=== PATIENT | female | born 1945 | race Caucasian/White ===

== ENCOUNTER 2018-10-21 08:45 | Day surgery (SDC) | payer MEDICARE ==
[2018-10-21] MEDS ORDERED: fentaNYL* 50 MCG/ML 2 ML VIAL (100 MCG VIAL) ONE (09:42)
[2018-10-21] MEDS ORDERED: Midazolam* 1 MG/ML 2 ML VIAL (2 MG) ONE (09:42)
[2018-10-21 10:57] VITALS: BP 133/60
[2018-10-21] MEDS ORDERED: Tropicamide 1% OPTH.SOL* BTL ONE (12:19)
[2018-10-21] MEDS ORDERED: Tetracaine 0.5% OPTH.SOL 4 ML* 1 DROP BTL ONE (12:19)
[2018-10-21] MEDS ORDERED: Ketorolac 0.5% OPHTH (NF) 0.5 % 5 ML BTL ONE (12:19)
[2018-10-21] MEDS ORDERED: Phenylephrine OPHTH SOL 2.5%* 2 ML ONE (12:19)
[2018-10-21] MEDS ORDERED: Lidocaine 1% MPF ** 5 ML VIAL ONE (12:19)
[2018-10-21] MEDS ORDERED: Povidone Iodine 5% OPTH* 30 ML BTL ONE (12:19)
[2018-10-21] MEDS ORDERED: Neomycin/Polymy/Dex OPHTH.OIN* 3.5 GM ONE (12:19)
[2018-10-21] MEDS ORDERED: acetaZOLAMIDE TAB* 250 MG ONE (12:19)
[2018-10-21] MEDS ORDERED: Cyclopentolate 1% OPTH.SOL* 2 ML BTL ONE (12:19)
--- NOTE | 2018-10-21 13:10 | OP ---
DATE OF OPERATION: 10/21/18 - [facility] DATE OF : 43 SURGEON: Aiden James MD ANESTHESIA: Monitored anesthesia care. PRE-OP DIAGNOSIS: Cataract, right eye with pseudoexfoliation. POST-OP DIAGNOSIS: Cataract, right eye with pseudoexfoliation. OPERATIVE PROCEDURE: Extracapsular cataract extraction of the right eye with intraocular lens implant and placement of capsular tension ring. IMPLANTS: SN60WF 20.0 diopter lens to the right eye and Yoshi Reform capsular tension ring size 11 to the right eye. COMPLICATIONS: None. DESCRIPTION OF PROCEDURE: The patient was given phenylephrine 2.5% and cyclopentolate 1% eye drops to the operative eye in the preoperative area. The patient was taken to the operating room where a time-out was taken to identify the correct patient, site, and side of surgery. The patient's right eye was prepped and draped in the usual sterile fashion with 5% Betadine. A second time -out was taken to verify the correct patient, site, and side of surgery, and correct lens implant. A lid speculum was placed to the right eye. A 1-mm paracentesis blade was used to make a clear corneal incision in the superotemporal position. Preservative free 1% lidocaine was injected into the anterior chamber. DisCoVisc was then injected into the anterior chamber. A 2.75 mm keratome blade was used to make a triplanar incision at the inferotemporal position. A cystotome initiated a capsulorrhexis which was completed with Utrata forceps in a continuous and curvilinear manner. Hydrodissection of the lens was performed with BSS on a cannula. The lens could be spun in a capsular bag. The phacoemulsification handpiece was used with a [id number] technique to remove the nucleus. The I/A handpiece then removed the residual cortical lens material. DisCoVisc was injected to inflate the capsular bag. The Yoshi Reform size 11 capsular tension ring was then injected to the capsular bag. The planned SN60WF 20.0 diopter lens was then injected into the capsular bag. The residual DisCoVisc was removed from the eye with a I/A handpiece. The corneal incisions were hydrated and no leaks occurred at physiologic pressure around 20 mmHg per palpation. The lid speculum was removed and drapes removed. Maxitrol ointment was placed to the surface of the operative eye. An adhesive patch and shield was then placed on the operative eye. The patient was taken to the postoperative area in stable condition. [id number]/[facility] #: [id number] MTDD
== END 2018-10-21 11:03 | disposition home or self-care (01) ==
LOC: OREAST 08:45
PROVIDERS: ATTEND Student in an Organized Health Care Education/Training Program
DX: H25.11 Age-related nuclear cataract, right eye (principal); H40.1431 Capsular glaucoma with pseudoexfoliation of lens, bilateral, mild stage; E11.9 Type 2 diabetes mellitus without complications; Z79.84 Long term (current) use of oral hypoglycemic drugs; I10 Essential (primary) hypertension; K21.9 Gastro-esophageal reflux disease without esophagitis; M10.9 Gout, unspecified; E78.00 Pure hypercholesterolemia, unspecified; E78.5 Hyperlipidemia, unspecified; K31.84 Gastroparesis; G62.9 Polyneuropathy, unspecified
CPT/HCPCS: A9270-GY; J2250; J3010; V2632